=== PATIENT | female | born 1940 | race Caucasian/White ===

== ENCOUNTER → 2019-01-29 11:49 | Outpatient (CLI) | payer MEDICARE, OTHER, SELFPAY ==
[2019-01-29 11:52] LABS: Mucous, Urine 0 SEEN /hpf (<or=2+)
[2019-01-29 11:59] LABS: Color, Urine Amber (Yellow); Glucose, Dipstick Normal (Normal); Ketone-Dipstick Negative (Negative); Leukocyte Esterase-Dipstick 500 /ul (Negative); Nitrite-Dipstick Positive (Negative); Occult Blood-Urine 250 /ul (Negative); Protein-Dipstick 30 mg/dl (Negative); Specific Gravity, Urine 1.005 (1.002-1.030); Urine Clarity Sl. Cloudy (Clear); Urine Urobilinogen 4 mg/dl (Normal)
[2019-01-29 12:00] LABS: Urine Bilirubin Dipstick 3 mg/dL (Negative)
[2019-01-29 12:06] LABS: Bacteria 1+ /hpf (None Seen); Red Blood Cells-Urine 25-50 SEEN /hpf (0-5); Squamous Epithelial Cells - UA 0-5 SEEN /hpf (5-10); White Blood Cells 25-50 SEEN /hpf (0-5)
== END ==
PROVIDERS: Family Provider Family Medicine; PCP Family Medicine; Referring Provider Nurse Practitioner Adult Health; Visit Provider Nurse Practitioner Adult Health
DX: R31.9 Hematuria, unspecified (principal)
CPT/HCPCS: 81001

== ENCOUNTER → 2019-02-04 14:17 | Outpatient (CLI) | payer MEDICARE, OTHER, SELFPAY ==
--- NOTE | 2019-02-04 14:22 | CT_ITS ---
STUDY: CT ABDOMEN AND PELVIS WITH AND WITHOUT CONTRAST REASON FOR EXAM: Female, 78 years old. Immature. History of breast cancer RADIATION DOSAGE (If Supplied By Facility): CTDIvol = ( 17.12 ) mGy, DLP = ( 1865.56 ) mGycm TECHNIQUE: Transaxial images were obtained from the dome of the diaphragm to the symphysis pubis without oral contrast. IV Isovue 370 100 was administered. Sagittal and coronal images were reconstructed. Individualized dose optimization techniques were used for this CT. COMPARISON: None. FINDINGS: There is a small focus of fatty herniation in the right hemidiaphragm. There is a focus of emphysematous change scarring in the left lower lobe. There is visualize coronary calcification. There is decreased attenuation of the liver consistent with steatosis. There is a well-circumscribed focal low attenuation within the liver measuring 4.9 mm most likely compatible with a simple cyst. Normal gallbladder and extrahepatic biliary system. Normal spleen. Normal pancreas. Normal bilateral adrenal glands. Normal right kidney. Normal left kidney. There is a small hiatal hernia. Normal small intestine. There is moderate stool in the colon. There are few diverticula are present without visualized diverticulitis. The appendix is visualized and appears normal. Aorta is partially calcified. This calcifications take off of the renal arteries. Normal inferior vena cava. There few nonspecific subcentimeter mesenteric and retroperitoneal lymph nodes. There is minimal thickening of the bladder wall. There is atrophy of the uterus. Normal abdominal wall. There is slight anterolisthesis at the level of L5-S1. There is a rudimentary disc at the level of S1-S2 or transitional vertebral body. There is moderate neural foramina narrowing L5 L5 S1 there is facet arthropathy. CT/CT Abd/Pelvis W/WO Contrast IMPRESSION: No visualized obstructing the ureteral or renal calculi. There is minimal thickening of the bladder wall. Could consider cystitis. Mild to moderate constipation diverticulosis no evidence of diverticulitis. Benign appearing hepatic cyst. 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 Degenerative change thoracolumbar spine especially L5-S1. Electronically Signed: Eryn Pimentel MD at 16:49 EDT Tel , Service support ,
[2019-02-04 15:21] LABS: CREATININE FINGERSTICK 0.6 mg/dL (0.55-1.02)
== END ==
PROVIDERS: Family Provider Family Medicine; PCP Family Medicine; Visit Provider Nurse Practitioner Adult Health
DX: R31.9 Hematuria, unspecified (principal)
CPT/HCPCS: 74178; Q9967

== ENCOUNTER → 2025-04-01 | Outpatient (CLI) | payer MEDICARE, SELFPAY ==
--- NOTE | 2025-04-01 13:03 | CT_ITS ---
PROCEDURE: CTA HEAD AND NECK W/ CONTRAST 04/01/2025 REASON FOR EXAM: CAROTID STENOSIS TECHNIQUE: Procedure Code: [id number] Modality: CT Procedure: CTA HEAD AND NECK W/ CONTRAST Multiplanar Sagittal and Coronal images were obtained. 3D post processing was performed CONTRAST: Isovue 370 VOLUME: 100 mL One or more dose reduction techniques were used (e.g., Automated exposure control, adjustment of the mA and/or kV according to patient size, use of iterative reconstruction technique). RADIATION DOSE SUMMARY: CTDlvol: 28 mGy DLP: 1500.79 mGycm COMPARISON: None FINDINGS: The unenhanced CT scan of the brain demonstrates areas of decreased attenuation in the deep white matter of both cerebral hemispheres. Findings suggestive of ischemic insult in the basal ganglia bilaterally worse on the left side. Aortic Arch: Normal size and branching pattern. Mild atherosclerotic plaque. Brachiocephalic and Subclavians: Mild atherosclerotic plaque without significant stenosis. RIGHT Carotid: Right CCA: Unremarkable. Right ICA: Calcific plaque at the origin causing high-grade stenosis. Maximum stenosis (NASCET): Greater than 80 % Right ECA: Unremarkable. LEFT Carotid: Left CCA: Unremarkable. Left ICA: Calcific plaque causing high-grade stenosis. Maximum stenosis (NASCET): > 90 % Left ECA: Unremarkable. Vertebrals: Codominant. Arise from the subclavians. Both vertebrals form the basilar. RIGHT Vertebral: Unremarkable. LEFT Vertebral: Unremarkable. Anatomy: [place] anatomy is normal. 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 Anterior cerebral arteries: Unremarkable: Middle cerebral arteries: Unremarkable. Basilar artery: Unremarkable. Posterior cerebral arteries: Unremarkable. Other major branches of the posterior circulation: Unremarkable. Major venous structures: Unremarkable. Other findings: Neck: No lymphadenopathy. Lungs: Bones: CT/CTA Head AND Neck W/ Contrast IMPRESSION: High-grade stenosis at both carotid bifurcations caused by calcific plaque. 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 Reading Location: [facility]
== END | disposition home or self-care (01) ==
LOC: CT 13:02
PROVIDERS: Referring Provider Physician Assistant; Visit Provider Physician Assistant
DX: I65.23 Occlusion and stenosis of bilateral carotid arteries (principal)
CPT/HCPCS: 70496; 70498; Q9967